=== PATIENT | male | born 1935 ===

== ENCOUNTER 2018-05-01 08:17 | Inpatient (IN) | payer MEDICAID ==
[2018-05-01] MEDS ORDERED: Albuterol-Ipratrop 3 mg / 0.5 (3 ml) UD INH STA ×2 (09:16→10:35)
--- NOTE | 2018-05-01 09:26 | ED PDOC ---
HPI: SOB/CHF/COPD Time Seen by Provider: 05/01/18 09:05 Chief Complaint (Nursing): Shortness Of Breath Chief Complaint (Provider): shortness of breath and cough History Per: Personal Care Worker (#[id number]) History/Exam Limitations: no limitations Onset/Duration Of Symptoms: Days (a few) Additional Complaint(s): King Simon, an 82 year old male with past medical history of lung cancer, presents to the emergency room with shortness of breath and cough with white/yellow dispute production ongoing for a few days. Patient states he is currently undergoing chemotherapy for lung cancer. He reports that he has bilateral lower leg swelling and pain for three months. Patient states he took his nebulizer with no relief. He denies any chest pain. No further medical complaints. Past Medical History Reviewed: Historical Data, Nursing Documentation, Vital Signs Vital Signs: Last Vital Signs Temp 97.9 F 05/01/18 16:20 Pulse 97 H 05/01/18 16:20 Resp 20 05/01/18 16:20 BP 119/76 05/01/18 16:20 Pulse Ox 96 05/01/18 16:20 - Medical History PMH: Asthma, COPD, Diabetes, HTN, Hypercholesterolemia, Malignancy (Lung), Chronic Kidney Disease Denies: HIV Other PMH: Lung cancer - Surgical History Surgical History: Appendectomy, Hernia Repair (Inguinal x 2) - Family History Family History: States: Unknown Family Hx - Home Medications Home Medications: Ambulatory Orders Medication Instructions Recorded Albuterol 0.083% [Albuterol 0.083% 2.5 mg IH Q6 PRN 05/01/18 Inhal Juani (2.5 mg/3 ml) UD] Albuterol HFA [Ventolin HFA 90 2 puff IH [id number] 05/01/18 mcg/actuation (8 g)] Allopurinol [Zyloprim] 100 mg PO DAILY 05/01/18 Atorvastatin [Lipitor] 10 mg PO HS 05/01/18 Calcium Carbonate/Vitamin D3 1 tab PO DAILY 05/01/18 [Calcium 600 + Vit D Tablet] Ergocalciferol (Vitamin D2) 5,000 unit PO QWK 05/01/18 [Ergocal] Furosemide [Lasix] 20 mg PO DAILY 05/01/18 Linaclotide [Linzess] 145 mcg PO DAILY 05/01/18 Magnesium Oxide [Magnesium] 400 mg PO BID 05/01/18 Metformin HCl [Glucophage] 1,000 mg PO DAILY 05/01/18 Metoprolol Succinate XL [Toprol XL] 50 mg PO DAILY 05/01/18 Montelukast [Singulair] 10 mg PO DAILY 05/01/18 Multivitamin,Ther and Minerals 1 tab PO DAILY 05/01/18 [Multivitamins with Minerals Hp] Prednisolone [Millipred] 5 mg PO DAILY 05/01/18 Sodium/Potas/Chlor/Magnes/Phos 10 meq PO DAILY 05/01/18 [Replace Sr Tablet] Spironolactone [Aldactone] 50 mg PO DAILY 05/01/18 - Allergies Allergies/Adverse Reactions: Allergies Allergy/AdvReac Type Severity Reaction Status Date / Time No Known Allergies Allergy Verified 05/01/18 08:34 Review of Systems ROS Statement: Except As Marked, All Systems Reviewed And Found Negative Cardiovascular: Negative for: Chest Pain Respiratory: Positive for: Cough (productive), Shortness of Breath Musculoskeletal: Positive for: Leg Pain (bilateral pain and swelling) Physical Exam - Reviewed Nursing Documentation Reviewed: Yes Vital Signs Reviewed: Yes - Physical Exam Appears: Positive for: Well, Non-toxic, No Acute Distress Head Exam: Positive for: ATRAUMATIC, NORMAL INSPECTION, NORMOCEPHALIC Skin: Positive for: Normal Color, Warm, DRY Eye Exam: Positive for: EOMI, Normal appearance, PERRL Cardiovascular/Chest: Positive for: Regular Rate, Rhythm Respiratory: Positive for: Wheezing (bilateral) Gastrointestinal/Abdominal: Positive for: Normal Exam, Soft Extremity: Positive for: Calf Tenderness (bilateral), Other (non pitting edema) Neurologic/Psych: Positive for: Alert, Oriented (x3) - Laboratory Results Result Diagrams: 05/01/18 09:40 05/01/18 15:10 - ECG O2 Sat by Pulse Oximetry: 96 (RA) Pulse Ox Interpretation: Normal - Radiology X-Ray: Interpreted by Ri X-Ray Interpretation: No Acute Disease Medical Decision Making Medical Decision Making: Time: 9:05 Initial Impression: dyspnea and bilateral LE edema Initial Plan: --EKG --CMP --ED urine dipstick --CBC w/ differential --PTT --Prothromin time --Cxr portable --Albuterol 3 ml INH --Solu-medrl 125 mg IVP --Blood culture stat --Peak flow pre/post --urinalysis DOPPLER ULTRASOUND: Preliminary reports (-) BLE DVT. Scribe Attestation: Documented by Flakita Ruiz, acting as a scribe for Latisha Babcock MD. Provider Scribe Attestation: All medical record entries made by the Scribe were at my direction and personally dictated by me. I have reviewed the chart and agree that the record accurately reflects my personal performance of the history, physical exam, medical decision making, and the department course for this patient. I have also personally directed, reviewed, and agree with the discharge instructions and disposition. Disposition - Clinical Impression Clinical Impression: COPD exacerbation, Lung cancer - Patient ED Disposition Is Patient to be Admitted: Yes - Disposition Disposition Time: 11:59 Condition: STABLE - Pt Status Changed To: Hospital Disposition Of: Inpatient - Admit Certification Admit to Inpatient:: After my assessment, the patient will require hospitalization for at least two midnights. This is because of the severity of symptoms shown, intensity of services needed, and/or the medical risk in this patient being treated as an outpatient. - POA Present On Arrival: None
[2018-05-01] MEDS ORDERED: Albuterol-Ipratrop 3 mg / 0.5 (3 ml) UD ONE ×2 (09:29→10:57)
[2018-05-01 09:48] LABS: BASO # 0.1 K/uL (0.0-0.2); BASO % 1.1 % (0.0-2.0); EOS # 0.6 K/uL (0.0-0.7); EOS % 7.4 % (0.0-4.0); LYMPH # 2.4 K/uL (1.0-4.3); LYMPH % 31.9 % (20.0-40.0); MEAN CORPUSCULAR HEMOGLOBIN 29.3 pg (27.0-31.0); MEAN CORPUSCULAR HGB CONC 32.6 g/dL (33.0-37.0); MEAN PLATELET VOLUME 9.4 fl (7.2-11.7); MONO # 0.7 K/uL (0.0-0.8); MONO % 9.9 % (0.0-10.0); NEUT # 3.7 K/uL (1.8-7.0); NEUT % 49.7 % (50.0-75.0); NRBC % 0.1 % (0.0-0.0); RBC 4.44 Mil/uL (4.40-5.90); RED CELL DISTRIBUTION WIDTH 15.4 % (11.5-14.5); WHITE BLOOD COUNT 7.5 K/uL (4.8-10.8)
[2018-05-01 09:50] LABS: INR 1.1; PROTHROMBIN TIME 12.3 Seconds (9.8-13.1)
[2018-05-01 09:53] LABS: PARTIAL THROMBOPLASTIN TIME 35.4 Seconds (25.6-37.1)
[2018-05-01 09:58] LABS: ALB/GLOB RATIO 1.1 (1.0-2.1); CALCIUM 9.8 mg/dL (8.4-10.2)
[2018-05-01 11:10] LABS: SQUAMOUS EPITHIAL < 1 /hpf (0-5); URINE BILIRUBIN NEGATIVE (NEGATIVE); URINE BLOOD NEGATIVE (NEGATIVE); URINE CLARITY SLIGHTY-CLOUDY (Clear); URINE COLOR YELLOW (YELLOW); URINE GLUCOSE (UA) NEG (Normal); URINE LEUKOCYTE ESTERASE NEG Leu/uL (Negative); URINE PROTEIN NEGATIVE (NEGATIVE); URINE UROBILINOGEN 0.2-1.0 mg/dL (0.2-1.0)
[2018-05-01] MEDS ORDERED: Sodium Chloride 3% for Inhalation 4 ML VIAL.NEB IH PRN (12:04)
[2018-05-01] MEDS ORDERED: Albuterol-Ipratrop 3 mg / 0.5 (3 ml) UD NEB SCH (13:00)
[2018-05-01 15:39] LABS: ALB/GLOB RATIO 0.9 (1.0-2.1); ALBUMIN 3.2 g/dL (3.5-5.0); CALCIUM 8.1 mg/dL (8.4-10.2)
--- NOTE | 2018-05-01 16:22 | CT ---
Date of service: 05/01/2018 PROCEDURE: CT NECK WITHOUT CONTRAST HISTORY: dyspnea, h/o lung ca COMPARISON: None available. TECHNIQUE: CT of the neck without intravenous contrast. Coronal and sagittal reformats generated. Radiation dose: DLP mGy-cm This CT exam was performed using one or more of the following dose reduction techniques: Automated exposure control, adjustment of the mA and/or kV according to patient size, and/or use of iterative reconstruction technique. FINDINGS: NASOPHARYNX: Unremarkable. SUPRAHYOID NECK: Unremarkable oropharynx, oral cavity, parapharyngeal space and retropharyngeal space. INFRAHYOID NECK: Unremarkable larynx, hypopharynx, and supraglottic space. Vocal cords intact. MASS: None. GLANDS: Parotid and submandibular glands unremarkable. Normal size thyroid gland, without nodule. LYMPH NODES: Normal. No lymphadenopathy. CERVICAL SPINE: No fracture or focal lesion. OTHER FINDINGS: None. IMPRESSION: Unremarkable non-contrast enhanced CT of the neck. Date of service: 05/01/2018 PROCEDURE: CT Chest without contrast HISTORY: dyspnea, h/o lung ca COMPARISON: None available. TECHNIQUE: Contiguous axial images were obtained through the chest without intravenous contrast enhancement. Sagittal and coronal reconstructions were performed. Radiation dose (DLP): mGy-cm. This CT exam was performed using one or more of the following dose reduction techniques: Automated exposure control, adjustment of the mA and/or kV according to patient size, and/or use of iterative reconstruction technique. FINDINGS: LUNGS: Stable fibronodular changes in the right upper lobe. Emphysema. Visualized airway clear. MEDIASTINUM: Unremarkable thoracic aorta. No aneurysm. Normal sized heart. Main pulmonary artery unremarkable. No vascular congestion. No lymphadenopathy. PLEURA: No pleural fluid. No pneumothorax. BONES: No fracture. No destructive lesion. UPPER ABDOMEN: Grossly unremarkable. OTHER FINDINGS: None. IMPRESSION: Stable fibronodular changes in the right upper lobe. Emphysema.
[2018-05-01 16:39] VITALS: BMI 26.4
[2018-05-01] MEDS: Albuterol-Ipratrop 3 mg / 0.5 (3 ml) UD NEB SCH ×2 (17:28→19:09)
--- NOTE | 2018-05-01 17:55 | RAD ---
Date of service: 05/01/2018 HISTORY: SOB COMPARISON: No prior. FINDINGS: LUNGS: No active pulmonary disease. PLEURA: No significant pleural effusion identified, no pneumothorax apparent. CARDIOVASCULAR: Normal. OSSEOUS STRUCTURES: No significant abnormalities. VISUALIZED UPPER ABDOMEN: Normal. OTHER FINDINGS: None. IMPRESSION: No active disease.
[2018-05-01] MEDS ORDERED: Promethazine/Cod 6.25mg-10mg/5ml Syr UD PO PRN (19:59)
[2018-05-01] MEDS: MethylPREDNISolone 40 mg Vial IVP SCH (20:36)
[2018-05-01] MEDS ORDERED: methylPREDNISolone 40 MG in Sodium Chloride 0.9% 50 ML IVPB SCH (21:00)
[2018-05-01] MEDS ORDERED: Albuterol-Ipratrop 3 mg / 0.5 (3 ml) UD INH PRN (21:12)
--- NOTE | 2018-05-01 21:28 | CARD ---
APPROVED REPORT Date of service: 05/01/2018 <Conclusion> Normal sinus rhythm Normal ECG
[2018-05-02 06:05] LABS: BASO % 0.1 % (0.0-2.0); HEMOGLOBIN 12.7 g/dL (12.0-18.0); LYMPH # 1.7 K/uL (1.0-4.3); LYMPH % 19.8 % (20.0-40.0); MEAN CELL VOLUME 88.4 fl (80.0-94.0); MEAN CORPUSCULAR HEMOGLOBIN 29.6 pg (27.0-31.0); MEAN CORPUSCULAR HGB CONC 33.4 g/dL (33.0-37.0); MEAN PLATELET VOLUME 9.4 fl (7.2-11.7); MONO # 0.2 K/uL (0.0-0.8); MONO % 2.6 % (0.0-10.0); NEUT # 6.6 K/uL (1.8-7.0); NEUT % 77.5 % (50.0-75.0); RBC 4.28 Mil/uL (4.40-5.90); RED CELL DISTRIBUTION WIDTH 15.3 % (11.5-14.5); WHITE BLOOD COUNT 8.6 K/uL (4.8-10.8)
[2018-05-02 06:14] LABS: ALB/GLOB RATIO 1.1 (1.0-2.1); ALBUMIN 3.8 g/dL (3.5-5.0); CALCIUM 9.7 mg/dL (8.4-10.2)
[2018-05-02] MEDS: Albuterol-Ipratrop 3 mg / 0.5 (3 ml) UD NEB SCH ×4 (07:32→18:59)
[2018-05-02] MEDS: Moxifloxacin IV 400mg/250ml NS 400 MG/250 ML BAG IVPB SCH (08:57)
[2018-05-02] MEDS: MethylPREDNISolone 40 mg Vial IVP SCH ×2 (08:57→21:17)
--- NOTE | 2018-05-02 11:28 | CP.PCM.HP ---
History of Present Illness - History of Present Illness History of Present Illness: 80 y/o M ex-smoker with PMHx HTN, DM2, COPD, Lung Cancer (chemo)?? admitted for COPD exacerbation. Patient states that increasing dyspnea with increased cough and sputum production in the last few days. Patient was given duonebs and steroids in ED, with minimal relief. Patient states follows with oncologist but hasnt seen in a while. Patient also states whistling noise from throat at times with trouble swallowing at times. No other complaints at this time. Patient denies fevers, chills, nausea, vomiting, chest pain. Patient states this AM feels better than yesterday, however still with symptoms. PSHx: Bilateral Inguinal hernia repair SMHx: exsmoker 3ppd, quit 30 years ago. Denies EtOH, drugs. Lives with daughter Present on Admission - Present on Admission Any Indicators Present on Admission: No Review of Systems - Review of Systems All systems: reviewed and no additional remarkable complaints except (mentioned in HPI) Past Patient History - Infectious Disease Hx of Infectious Diseases: None - Past Medical History & Family History Past Medical History?: Yes - Past Social History Smoking Status: Former Smoker - CARDIAC Hx Hypercholesterolemia: Yes Hx Hypertension: Yes - PULMONARY Hx Asthma: Yes Hx Chronic Obstructive Pulmonary Disease (COPD): Yes - NEUROLOGICAL Hx Neurological Disorder: Yes Other/Comment: Forgetful - HEENT Hx HEENT Problems: No - RENAL Hx Chronic Kidney Disease: Yes - ENDOCRINE/METABOLIC Hx Endocrine Disorders: Yes Hx Diabetes Mellitus Type 2: Yes - HEMATOLOGICAL/ONCOLOGICAL Hx Human Immunodeficiency Virus (HIV): No - INTEGUMENTARY Hx Dermatological Problems: No - MUSCULOSKELETAL/RHEUMATOLOGICAL Hx Musculoskeletal Disorders: Yes Hx Falls: Yes (3 Weeks ago) Hx Gout: Yes - GASTROINTESTINAL Hx Gastrointestinal Disorders: No - GENITOURINARY/GYNECOLOGICAL Hx Genitourinary Disorders: No - PSYCHIATRIC Hx Psychophysiologic Disorder: No Hx Substance Use: No - SURGICAL HISTORY Hx Appendectomy: Yes - ANESTHESIA Hx Anesthesia: Yes Hx Anesthesia Reactions: No Hx Malignant Hyperthermia: No Meds Allergies/Adverse Reactions: Allergies Allergy/AdvReac Type Severity Reaction Status Date / Time No Known Allergies Allergy Verified 05/01/18 08:34 Physical Exam - Constitutional Appears: Non-toxic, No Acute Distress - Head Exam Head Exam: NORMAL INSPECTION - Eye Exam Eye Exam: Normal appearance - Neck Exam Neck exam: Positive for: Normal Inspection. Negative for: Lymphadenopathy, Tenderness - Respiratory Exam Respiratory Exam: Rhonchi, NORMAL BREATHING PATTERN. absent: Respiratory Distress - Cardiovascular Exam Cardiovascular Exam: REGULAR RHYTHM, +S1, +S2 - GI/Abdominal Exam GI & Abdominal Exam: Normal Bowel Sounds, Soft. absent: Tenderness - Extremities Exam Extremities exam: Positive for: normal inspection - Back Exam Back exam: NORMAL INSPECTION - Neurological Exam Neurological exam: Alert, Oriented x3 - Psychiatric Exam Psychiatric exam: Normal Affect, Normal Mood - Skin Skin Exam: Normal Color, Warm Results - Vital Signs Recent Vital Signs: Last Vital Signs Temp 97.5 F L 05/02/18 07:44 Pulse 101 H 05/02/18 09:00 Resp 22 05/02/18 07:44 BP 97/63 L 05/02/18 07:44 Pulse Ox 94 L 05/02/18 07:44 - Labs Result Diagrams: 05/02/18 04:20 05/02/18 04:20 Labs: Laboratory Results - last 24 hr 05/01/18 05/01/18 05/02/18 15:10 15:10 04:20 WBC 8.6 RBC 4.28 L Hgb 12.7 Hct 37.9 MCV 88.4 MCH 29.6 MCHC 33.4 RDW 15.3 H Plt Count 183 MPV 9.4 Neut % (Auto) 77.5 H Lymph % (Auto) 19.8 L Dillon % (Auto) 2.6 Eos % (Auto) 0.0 Baso % (Auto) 0.1 Neut # (Auto) 6.6 Lymph # (Auto) 1.7 Dillon # (Auto) 0.2 Eos # (Auto) 0.0 Baso # (Auto) 0.0 Sodium 136 Potassium 4.5 Chloride 105 Carbon Dioxide 26 Anion Gap 10 BUN 18 Creatinine 1.4 Est GFR ( Amer) 58 Est GFR (Non-Af Amer) 48 Random Glucose 104 Calcium 8.1 L Total Bilirubin 0.7 AST 46 ALT 19 L D Alkaline Phosphatase 43 NT-Pro-B Natriuret Pep 115 Total Protein 6.8 Albumin 3.2 L Globulin 3.6 Albumin/Globulin Ratio 0.9 L Influenza Typ A,B (EIA) Negative for flu a/b 05/02/18 04:20 WBC RBC Hgb Hct MCV MCH MCHC RDW Plt Count MPV Neut % (Auto) Lymph % (Auto) Dillon % (Auto) Eos % (Auto) Baso % (Auto) Neut # (Auto) Lymph # (Auto) Dillon # (Auto) Eos # (Auto) Baso # (Auto) Sodium 134 Potassium 5.0 Chloride 99 Carbon Dioxide 29 Anion Gap 11 BUN 28 H Creatinine 1.8 H Est GFR ( Amer) 44 Est GFR (Non-Af Amer) 36 Random Glucose 129 H Calcium 9.7 Total Bilirubin 0.4 AST 31 ALT 18 L Alkaline Phosphatase 63 NT-Pro-B Natriuret Pep Total Protein 7.3 Albumin 3.8 Globulin 3.5 Albumin/Globulin Ratio 1.1 Influenza Typ A,B (EIA) Assessment & Plan - Assessment and Plan (Free Text) Assessment: 80 y/o M with PMH of HTN, NIDDM2, COPD, Lung Cancer?? admitted for acute COPD exacerbation. Acute COPD exacerbation -likely trigger 2/2 recent illness -No leukocytosis or fever -requiring 2L NC -Duonebs -cough suppressant -steroid 40mg q12 -moxifloxacin -pulmonology consulted, appreciate recommendations Lung CA, history of -ct of chest/neck unremarkable except for small fibronodular changes -no neck pathology DVT Prophylaxis -SCDs
--- NOTE | 2018-05-02 11:29 | US ---
Date of service: 05/01/2018 PROCEDURE: Bilateral lower extremity venous duplex Doppler. HISTORY: BLE swelling COMPARISON: None available. TECHNIQUE: Bilateral common femoral, superficial femoral, popliteal and posterior tibial veins were evaluated. Flow was assessed with color Doppler, compressibility, assessment of phasic flow and augmentation response. FINDINGS: COMMON FEMORAL VEIN: Right CFV: Unremarkable. Left CFV: Unremarkable. SUPERFICIAL FEMORAL VEIN: Right SFV: Unremarkable. Left SFV: Unremarkable. POPLITEAL VEIN: Right Popliteal: Unremarkable. Left Popliteal: Unremarkable. POSTERIOR TIBIAL VEIN: Right PTV: Unremarkable. Left PTV: Unremarkable. OTHER FINDINGS: None. IMPRESSION: No evidence of deep venous thrombosis.
--- NOTE | 2018-05-02 16:31 | CARD ---
APPROVED REPORT Date of service: 05/02/2018 EXAM: Two-dimensional and M-mode echocardiogram with Doppler and color Doppler. Other Information Quality : AverageRhythm : NSR INDICATION Dyspnea Pulmonary Hypertention 2D DIMENSIONS IVSd0.93 (0.7-1.1cm)LVDd4.74 (3.9-5.9cm) LVOT Diameter2.17 (1.8-2.4cm)PWd0.64 (0.7-1.1cm) IVSs0.97 (0.8-1.2cm)LVDs3.19 (2.5-4.0cm) FS (%) 32.8 %PWs0.91 (0.8-1.2cm) M-Mode DIMENSIONS Left Atrium (MM)2.06 (2.5-4.0cm)IVSd0.73 (0.7-1.1cm) Aortic Root3.81 (2.2-3.7cm)Aortic Cusp Exc.2.06 (1.5-2.0cm) PWd0.91 (0.7-1.1cm)IVSs1.12 cm FS (%) 28 %PWs1.08 cm Aortic Valve AoV Peak Ysriwrgt033.0cm/sAoV VTI15.6cmAO Peak GR.5mmHg LVOT Peak Qylouscc57.6cm/sLVOT VTI12.36cmAO Mean GR.3mmHg Mitral Valve E/A ratio0.0 TDI E/Lateral E'0.0E/Medial E'0.0 LEFT VENTRICLE The left ventricle is normal size. There is normal left ventricular wall thickness. The left ventricular systolic function is normal. The estimated ejection fraction is 55-60% No regional wall motion abnormalities noted.. Transmitral Doppler flow pattern is Grade I-abnormal relaxation pattern. No left ventricle thrombus noted on this study. There is no ventricular septal defect visualized. There is no mass noted in the left ventricle. RIGHT VENTRICLE The right ventricle is normal size. There is normal right ventricular wall thickness. The right ventricular systolic function is normal. ATRIA The left atrium size is normal. The right atrium size is normal. The interatrial septum is intact with no evidence for an atrial septal defect. AORTIC VALVE The aortic valve is normal in structure. Trivial aortic regurgitation is present. There is no aortic valvular stenosis. MITRAL VALVE The mitral valve is normal in structure. Mitral annular calcification is mild. There is no mitral valve stenosis. There is no mitral valve regurgitation noted. TRICUSPID VALVE The tricuspid valve is normal in structure. There is no tricuspid valve regurgitation noted. PULMONIC VALVE The pulmonary valve is normal in structure. There is no pulmonic valvular regurgitation. GREAT VESSELS The aortic root is mildly dilated The ascending aorta is normal in size. The pulmonary artery is normal. The IVC is normal in size and collapses >50% with inspiration. PERICARDIAL EFFUSION There is no pericardial effusion. <Conclusion> Dilated aortic root Normal LV sysotlic function with doppler hemodynamics consistent with abnormal relaxation The estimated ejection fraction is 55-60%
--- NOTE | 2018-05-02 21:58 | CP.PCM.CON ---
History of Present Illness - History of Present Illness History of Present Illness: Called to consult on a patient with a Hx of COPD 2/2 tobacco abuse, who comes in with sx and signs of an exacerbation. Pos SOB, Neg hem, pos Phlegm, ? fever at tome, pos audible wheezing. NKDA Tobacco user, quit 10 years ago. Hx of 100+ pack years. ETOH: former. Fam Hx: Non Cont VS Stable Lungs: Distant BS, with some epx focal wheezing and rhonchi. No C,C,E. Neuro: GNF Labs: see reports. a/p Acute Resp Insuff 2/2 COPD ex. possibly acute tracheobronchitis. Cont Supp o2, maintain O2 sat > 90% Avoid Hyperoxia. Cont Nebulized MAXIM. Chest PT. Iv Steroids (would change to po in view of improvement) and ABX. Monitor WBC#, temp curve, and pancultures. PFT's prior to d/c. PUD and DVT Px. Signing out of case. Please call back prn Dr. Davin Pacheco [phone] Past Patient History - Infectious Disease Hx of Infectious Diseases: None - Past Medical History & Family History Past Medical History?: Yes - Past Social History Smoking Status: Former Smoker - CARDIAC Hx Hypercholesterolemia: Yes Hx Hypertension: Yes - PULMONARY Hx Asthma: Yes Hx Chronic Obstructive Pulmonary Disease (COPD): Yes - NEUROLOGICAL Hx Neurological Disorder: Yes Other/Comment: Forgetful - HEENT Hx HEENT Problems: No - RENAL Hx Chronic Kidney Disease: Yes - ENDOCRINE/METABOLIC Hx Endocrine Disorders: Yes Hx Diabetes Mellitus Type 2: Yes - HEMATOLOGICAL/ONCOLOGICAL Hx Human Immunodeficiency Virus (HIV): No - INTEGUMENTARY Hx Dermatological Problems: No - MUSCULOSKELETAL/RHEUMATOLOGICAL Hx Musculoskeletal Disorders: Yes Hx Falls: Yes (3 Weeks ago) Hx Gout: Yes - GASTROINTESTINAL Hx Gastrointestinal Disorders: No - GENITOURINARY/GYNECOLOGICAL Hx Genitourinary Disorders: No - PSYCHIATRIC Hx Psychophysiologic Disorder: No Hx Substance Use: No - SURGICAL HISTORY Hx Appendectomy: Yes - ANESTHESIA Hx Anesthesia: Yes Hx Anesthesia Reactions: No Hx Malignant Hyperthermia: No Meds Allergies/Adverse Reactions: Allergies Allergy/AdvReac Type Severity Reaction Status Date / Time No Known Allergies Allergy Verified 05/01/18 08:34 - Medications Medications: Current Medications Albuterol/Ipratropium (Duoneb 3 Mg/0.5 Mg (3 Ml) Ud) 3 ml NEB 0800,1200,1600, 2000 ISSAC Last Admin: 05/02/18 18:59 Dose: 3 ml Albuterol/Ipratropium (Duoneb 3 Mg/0.5 Mg (3 Ml) Ud) 3 ml INH RQ6 PRN PRN Reason: Shortness of Breath Moxifloxacin HCl (Avelox Iv 400mg/250ml Ns) 400 mg in 250 mls @ 250 mls/hr IVPB DAILY ISSAC PRN Reason: Protocol Last Admin: 05/02/18 08:57 Dose: 250 mls/hr Methylprednisolone (Solu-Medrol) 40 mg IVP Q12 ISSAC Last Admin: 05/02/18 21:17 Dose: 40 mg Promethazine HCl/Codeine (Phenergan/Codeine Oral Syrup) 5 ml PO Q4 PRN PRN Reason: Cough Last Admin: 05/01/18 20:21 Dose: 5 ml Results - Vital Signs Recent Vital Signs: Last Vital Signs Temp 97.8 F 05/02/18 20:12 Pulse 117 H 05/02/18 20:12 Resp 20 05/02/18 20:12 BP 102/67 05/02/18 20:12 Pulse Ox 95 05/02/18 20:12 - Labs Result Diagrams: 05/02/18 04:20 05/02/18 04:20 Labs: Laboratory Results - last 24 hr 05/01/18 05/02/18 05/02/18 15:10 04:20 04:20 WBC 8.6 RBC 4.28 L Hgb 12.7 Hct 37.9 MCV 88.4 MCH 29.6 MCHC 33.4 RDW 15.3 H Plt Count 183 MPV 9.4 Neut % (Auto) 77.5 H Lymph % (Auto) 19.8 L Bradley % (Auto) 2.6 Eos % (Auto) 0.0 Baso % (Auto) 0.1 Neut # (Auto) 6.6 Lymph # (Auto) 1.7 Bradley # (Auto) 0.2 Eos # (Auto) 0.0 Baso # (Auto) 0.0 Sodium 134 Potassium 5.0 Chloride 99 Carbon Dioxide 29 Anion Gap 11 BUN 28 H Creatinine 1.8 H Est GFR ( Amer) 44 Est GFR (Non-Af Amer) 36 Random Glucose 129 H Calcium 9.7 Total Bilirubin 0.4 AST 31 ALT 18 L Alkaline Phosphatase 63 Total Protein 7.3 Albumin 3.8 Globulin 3.5 Albumin/Globulin Ratio 1.1 Procalcitonin < 0.05 L
[2018-05-03 06:56] LABS: HEMOGLOBIN 12.2 g/dL (12.0-18.0); MEAN CELL VOLUME 87.8 fl (80.0-94.0); MEAN CORPUSCULAR HEMOGLOBIN 29.4 pg (27.0-31.0); MEAN CORPUSCULAR HGB CONC 33.5 g/dL (33.0-37.0); RBC 4.14 Mil/uL (4.40-5.90); RED CELL DISTRIBUTION WIDTH 15.5 % (11.5-14.5); WHITE BLOOD COUNT 14.1 K/uL (4.8-10.8)
[2018-05-03 07:15] LABS: ALBUMIN 3.6 g/dL (3.5-5.0); CALCIUM 9.4 mg/dL (8.4-10.2)
[2018-05-03] MEDS: Albuterol-Ipratrop 3 mg / 0.5 (3 ml) UD NEB SCH (08:00)
[2018-05-03] MEDS: Moxifloxacin IV 400mg/250ml NS 400 MG/250 ML BAG IVPB SCH (09:30)
[2018-05-03] MEDS: MethylPREDNISolone 40 mg Vial IVP SCH ×2 (09:30→22:00)
[2018-05-03] MEDS ORDERED: Albuterol-Ipratrop 3 mg / 0.5 (3 ml) UD INH PRN (14:37)
--- NOTE | 2018-05-03 15:39 | CP.PCM.PN ---
Addendum entered and electronically signed by Jud Schneider MD 05/03/18 18:01: MARISSA noted, Crea increased to 1.7 from 1.4. Hypovolemic (low BP with reflex tachy), likely prerenal, will start maintenance fluids and monitor I/O's. Original Note: Subjective - Date & Time of Evaluation Date of Evaluation: 05/03/18 Time of Evaluation: 08:00 - Subjective Subjective: No overnight events. Pt seen and examined this morning. States his sob and cough as improved. Objective - Vital Signs/Intake and Output Vital Signs (last 24 hours): Temp Pulse Resp BP Pulse Ox 97.9 F 101 H 20 109/66 92 L 05/03/18 09:00 05/03/18 09:00 05/03/18 09:00 05/03/18 09:00 05/03/18 09:00 - Medications Medications: Current Medications Albuterol/Ipratropium (Duoneb 3 Mg/0.5 Mg (3 Ml) Ud) 3 ml INH RQ4 PRN PRN Reason: Shortness of Breath Moxifloxacin HCl (Avelox Iv 400mg/250ml Ns) 400 mg in 250 mls @ 250 mls/hr IVPB DAILY ISSAC; Protocol Last Admin: 05/02/18 08:57 Dose: 250 mls/hr Methylprednisolone (Solu-Medrol) 40 mg IVP Q12 ISSAC Last Admin: 05/02/18 21:17 Dose: 40 mg Promethazine HCl/Codeine (Phenergan/Codeine Oral Syrup) 5 ml PO Q4 PRN PRN Reason: Cough Last Admin: 05/01/18 20:21 Dose: 5 ml Tiotropium [place] (Spiriva) 18 mcg INH DAILY ISSAC - Labs Labs: 05/03/18 04:20 05/03/18 04:20 PT 12.3 Seconds (9.8-13.1) 05/01/18 09:40 INR 1.1 05/01/18 09:40 - Constitutional Appears: Well, No Acute Distress - Head Exam Head Exam: NORMAL INSPECTION - Eye Exam Eye Exam: Normal appearance - ENT Exam ENT Exam: Mucous Membranes Moist - Neck Exam Neck Exam: Full ROM - Respiratory Exam Respiratory Exam: Rhonchi, Wheezes (Scattered BL). absent: Respiratory Distress - Cardiovascular Exam Cardiovascular Exam: REGULAR RHYTHM, +S1, +S2. absent: Murmur - GI/Abdominal Exam GI & Abdominal Exam: Soft, Normal Bowel Sounds. absent: Tenderness - Extremities Exam Extremities Exam: absent: Pedal Edema - Neurological Exam Neurological Exam: Alert, Oriented x3 - Psychiatric Exam Psychiatric exam: Normal Affect - Skin Skin Exam: Normal Color Assessment and Plan (1) COPD exacerbation Status: Acute - Assessment and Plan (Free Text) Assessment: 80 y/o M with PMH of HTN, NIDDM2, COPD, Lung Cancer (w/r resectionadmitted for acute COPD exacerbation. Acute COPD exacerbation -Improved, c/w current management as ordered -6 min walk test, PFT's ordered -pulmonology consulted, appreciate recommendations Discussed case w/ Dr. José Miguel Schneider, PGY2
[2018-05-03] MEDS: Sodium Chloride 0.9% 1,000 ML IV SCH (21:00)
[2018-05-04] MEDS: Sodium Chloride 0.9% 1,000 ML IV SCH ×2 (02:00→09:04)
[2018-05-04] MEDS ORDERED: Sodium Chloride 0.9% 500 ML IV ONE (04:48)
[2018-05-04 08:23] VITALS: TEMP 97.4
[2018-05-04] MEDS: MethylPREDNISolone 40 mg Vial IVP SCH (08:57)
[2018-05-04] MEDS: Moxifloxacin IV 400mg/250ml NS 400 MG/250 ML BAG IVPB SCH (08:58)
[2018-05-04] MEDS ORDERED: Tiotropium 18 mcg Cap For Inhalation INH SCH (09:00)
[2018-05-04 14:09] VITALS: BP 108/74; PULSE 96; RESP 17; O2SAT 100
--- NOTE | 2018-05-04 15:23 | CP.PCM.DIS ---
Provider - Provider Date of Admission: 05/01/18 11:59 Attending physician: Guillermo Valdez MD Time Spent in preparation of Discharge (in minutes): 35 Diagnosis - Discharge Diagnosis (1) COPD exacerbation Status: Resolved Hospital Course - Lab Results Lab Results: Micro Results 05/02/18 17:30 Sputum Gram Stain - Final 05/02/18 17:30 Sputum Sputum Culture - Final NORMAL ORAL NARENDRA 05/01/18 09:15 Blood-Venous Blood Culture - Preliminary NO GROWTH AFTER 3 DAYS 05/01/18 08:45 Blood-Venous Blood Culture - Preliminary NO GROWTH AFTER 3 DAYS Most Recent Lab Values WBC 14.1 K/uL (4.8-10.8) H D 05/03/18 04:20 RBC 4.14 Mil/uL (4.40-5.90) L 05/03/18 04:20 Hgb 12.2 g/dL (12.0-18.0) 05/03/18 04:20 Hct 36.3 % (35.0-51.0) 05/03/18 04:20 MCV 87.8 fl (80.0-94.0) 05/03/18 04:20 MCH 29.4 pg (27.0-31.0) 05/03/18 04:20 MCHC 33.5 g/dL (33.0-37.0) 05/03/18 04:20 RDW 15.5 % (11.5-14.5) H 05/03/18 04:20 Plt Count 196 K/uL (130-400) 05/03/18 04:20 MPV 9.4 fl (7.2-11.7) 05/02/18 04:20 Neut % (Auto) 77.5 % (50.0-75.0) H 05/02/18 04:20 Lymph % (Auto) 19.8 % (20.0-40.0) L 05/02/18 04:20 [place] % (Auto) 2.6 % (0.0-10.0) 05/02/18 04:20 Eos % (Auto) 0.0 % (0.0-4.0) 05/02/18 04:20 Baso % (Auto) 0.1 % (0.0-2.0) 05/02/18 04:20 Neut # (Auto) 6.6 K/uL (1.8-7.0) 05/02/18 04:20 Lymph # (Auto) 1.7 K/uL (1.0-4.3) 05/02/18 04:20 [place] # (Auto) 0.2 K/uL (0.0-0.8) 05/02/18 04:20 Eos # (Auto) 0.0 K/uL (0.0-0.7) 05/02/18 04:20 Baso # (Auto) 0.0 K/uL (0.0-0.2) 05/02/18 04:20 PT 12.3 Seconds (9.8-13.1) 05/01/18 09:40 INR 1.1 05/01/18 09:40 Sodium 135 mmol/l (132-148) 05/03/18 04:20 Potassium 4.5 MMOL/L (3.6-5.0) 05/03/18 04:20 Chloride 99 mmol/L (98-107) 05/03/18 04:20 Carbon Dioxide 25 mmol/L (22-30) 05/03/18 04:20 Anion Gap 16 (10-20) 05/03/18 04:20 BUN 31 mg/dl (9-20) H 05/03/18 04:20 Creatinine 1.7 mg/dl (0.8-1.5) H 05/03/18 04:20 Est GFR ( Amer) 47 05/03/18 04:20 Est GFR (Non-Af Amer) 39 05/03/18 04:20 Random Glucose 162 mg/dL (75-110) H 05/03/18 04:20 Calcium 9.4 mg/dL (8.4-10.2) 05/03/18 04:20 Total Bilirubin 0.2 mg/dl (0.2-1.3) 05/03/18 04:20 AST 29 U/L (17-59) 05/03/18 04:20 ALT 25 U/L (21-72) 05/03/18 04:20 Alkaline Phosphatase 60 U/L (38-126) 05/03/18 04:20 NT-Pro-B Natriuret Pep 115 pg/ml (0-900) 05/01/18 15:10 Total Protein 7.1 G/DL (6.3-8.2) 05/03/18 04:20 Albumin 3.6 g/dL (3.5-5.0) 05/03/18 04:20 Globulin 3.6 gm/dL (2.2-3.9) 05/03/18 04:20 Albumin/Globulin Ratio 1.0 (1.0-2.1) 05/03/18 04:20 Procalcitonin < 0.05 NG/ML (0.19-0.49) L 05/01/18 15:10 Urine Color Yellow (YELLOW) 05/01/18 11:03 Urine Clarity Slighty-cloudy (Clear) 05/01/18 11:03 Urine pH 5.0 (5.0-8.0) 05/01/18 11:03 Ur Specific [place] 1.018 (1.003-1.030) 05/01/18 11:03 Urine Protein Negative mg/dL (NEGATIVE) 05/01/18 11:03 Urine Glucose (UA) Neg mg/dL (Normal) 05/01/18 11:03 Urine Ketones Negative mg/dL (NEGATIVE) 05/01/18 11:03 Urine Blood Negative (NEGATIVE) 05/01/18 11:03 Urine Nitrate Negative (NEGATIVE) 05/01/18 11:03 Urine Bilirubin Negative (NEGATIVE) 05/01/18 11:03 Urine Urobilinogen 0.2-1.0 mg/dL (0.2-1.0) 05/01/18 11:03 Ur Leukocyte Esterase Neg Efren/uL (Negative) 05/01/18 11:03 Urine RBC (Auto) 2 /hpf (0-3) 05/01/18 11:03 Urine Microscopic WBC 1 /hpf (0-5) 05/01/18 11:03 Ur Squamous Epith Cells < 1 /hpf (0-5) 05/01/18 11:03 Influenza Typ A,B (EIA) Negative for flu a/b (NEGATIVE) 05/01/18 15:10 - Hospital Course Hospital Course: 80 y/o M ex-smoker with PMHx HTN, DM2, COPD, and questionnable Lung Cancer (as per family), admitted for COPD exacerbation. Pt was treated with bronchodilators, antibiotics, and steroids until respiratory status improved to baseline. 6 minute walk test was completed which should good exercise tolerance and no indication for home O2. Pt was evaluated by furniture decals inspector who recommended PFT's outpatient. Stable for discharge on po antibiotics to complete 5 day course and steroid taper. Discussed Case with Dr. José Miguel Schneider, PGY2 Discharge Exam - Head Exam Head Exam: NORMAL INSPECTION - Eye Exam Eye Exam: Normal appearance - ENT Exam ENT Exam: Mucous Membranes Moist - Respiratory Exam Respiratory Exam: Clear to PA & Lateral. absent: Rales, Wheezes - Cardiovascular Exam Cardiovascular Exam: REGULAR RHYTHM - GI/Abdominal Exam GI & Abdominal Exam: Normal Bowel Sounds - Extremities Exam Extremities exam: normal inspection - Neurological Exam Neurological exam: Alert, Oriented x3 - Psychiatric Exam Psychiatric exam: Normal Affect - Skin Skin Exam: Normal Color Discharge Plan - Discharge Medications Prescriptions: Moxifloxacin [Avelox] 400 mg PO DAILY 3 Days #3 tab predniSONE [Prednisone] 10 mg PO BID #30 Tiotropium [Spiriva] 18 mcg INH DAILY #30 cap - Follow Up Plan Condition: STABLE Disposition: HOME/ ROUTINE Instructions: Exacerbation of COPD (DC) Additional Instructions: follow up with in 1 week Referrals: Magen Fenton MD [Staff Provider] -
== END 2018-05-04 15:40 | disposition home or self-care (01) | DRG 541 ==
LOC: H.ER 08:17 → H.ERHOLD 11:59 → H.TEL 15:45
PROVIDERS: ADMIT Family Medicine; ATTEND Family Medicine
DX: J44.1 Chronic obstructive pulmonary disease with (acute) exacerbation (principal); N17.9 Acute kidney failure, unspecified; C34.90 Malignant neoplasm of unspecified part of unspecified bronchus or lung; E86.1 Hypovolemia; R06.89 Other abnormalities of breathing; E78.00 Pure hypercholesterolemia, unspecified; Z87.891 Personal history of nicotine dependence; M10.9 Gout, unspecified; E11.9 Type 2 diabetes mellitus without complications; I10 Essential (primary) hypertension

== ENCOUNTER 2018-12-13 15:45 | Inpatient (IN) | payer MEDICAID ==
[2018-12-13 15:45] VITALS: BMI 26.4
[2018-12-13] MEDS ORDERED: Albuterol-Ipratrop 3 mg / 0.5 (3 ml) UD ONE (16:19)
[2018-12-13 16:41] LABS: BASO # 0.1 K/uL (0.0-0.2); BASO % 1.1 % (0.0-2.0); EOS # 0.5 K/uL (0.0-0.7); EOS % 6.8 % (0.0-4.0); HEMOGLOBIN 12.8 g/dL (12.0-18.0); LYMPH # 2.5 K/uL (1.0-4.3); LYMPH % 31.7 % (20.0-40.0); MEAN CELL VOLUME 90.5 fl (80.0-94.0); MEAN CORPUSCULAR HGB CONC 33.1 g/dL (33.0-37.0); MEAN PLATELET VOLUME 8.8 fl (7.2-11.7); MONO # 0.9 K/uL (0.0-0.8); MONO % 11.4 % (0.0-10.0); NEUT # 3.8 K/uL (1.8-7.0); NRBC % 0.1 % (0.0-0.0); RBC 4.26 Mil/uL (4.40-5.90); RED CELL DISTRIBUTION WIDTH 16.4 % (11.5-14.5); WHITE BLOOD COUNT 7.7 K/uL (4.8-10.8)
[2018-12-13 16:47] LABS: INR 1.1; PROTHROMBIN TIME 12.7 Seconds (9.8-13.1)
[2018-12-13 16:49] LABS: PARTIAL THROMBOPLASTIN TIME 35.8 Seconds (25.6-37.1)
[2018-12-13 16:50] LABS: VENOUS BLOOD GAS BASE EXCESS 1.9 mmol/L (0.0-2.0); VENOUS BLOOD GAS PCO2 50 mmHg (40-60); VENOUS BLOOD GAS PO2 28 mm/Hg (30-55); VENOUS BLOOD PH 7.36 (7.32-7.43)
[2018-12-13 16:54] LABS: ALB/GLOB RATIO 1.2 (1.0-2.1); ALBUMIN 4.1 g/dL (3.5-5.0); ALT/SGPT 20 U/L (21-72); AST/SGOT 33 U/L (17-59); BLOOD UREA NITROGEN 19 mg/dl (9-20); CALCIUM 9.4 mg/dL (8.4-10.2); GFR NON-AFRICAN AMERICAN 36
--- NOTE | 2018-12-13 17:01 | RAD ---
Date of service: 12/13/2018 HISTORY: possible admission COMPARISON: 05/01/2018. FINDINGS: LUNGS: The lungs are hyperinflated and there is peribronchial thickening with chronic changes in both lungs. No focal consolidation. PLEURA: No pleural effusions or pneumothorax. CARDIOVASCULAR: The heart is normal in size. There are aortic atherosclerotic calcifications present. OSSEOUS STRUCTURES: Within normal limits for the patient's age. VISUALIZED UPPER ABDOMEN: Normal. OTHER FINDINGS: None. IMPRESSION: No active pulmonary disease. COPD.
[2018-12-13 17:05] LABS: B-TYPE NATRIURETIC PEPTIDE 239 pg/ml (0-900)
[2018-12-13] MEDS ORDERED: Albuterol-Ipratrop 3 mg / 0.5 (3 ml) UD INH STA ×3 (18:00→23:13)
--- NOTE | 2018-12-13 18:00 | ED PDOC ---
HPI: SOB/CHF/COPD Time Seen by Provider: 12/13/18 16:17 Chief Complaint (Nursing): Shortness Of Breath Chief Complaint (Provider): Shortness of breath History Per: Patient History/Exam Limitations: no limitations Onset/Duration Of Symptoms: Days (2) Current Symptoms Are (Timing): Still Present Additional History Per: Patient Additional Complaint(s): 83yo male, comes to ER for evaluation of 2 days of shortness of breath. Patient also reports associated cough but denies any fever, nausea, vomiting. Patient has been compliant with all his medications. Past Medical History Vital Signs: Last Vital Signs Temp 97.7 F 12/13/18 15:52 Pulse 110 H 12/13/18 15:52 Resp 18 12/13/18 16:41 BP 116/73 12/13/18 15:52 Pulse Ox 94 L 12/13/18 15:52 Primary Care Provider: Magen Fenton - Medical History PMH: Asthma, COPD, Diabetes, HTN, Hypercholesterolemia, Malignancy (Lung), Chronic Kidney Disease Denies: HIV - Surgical History Surgical History: Appendectomy, Hernia Repair (Inguinal x 2) - Family History Family History: States: Unknown Family Hx - Home Medications Home Medications: Ambulatory Orders Medication Instructions Recorded Albuterol 0.083% [Albuterol 0.083% 2.5 mg IH Q6 PRN 05/01/18 Inhal Juani (2.5 mg/3 ml) UD] Albuterol HFA [Ventolin HFA 90 2 puff IH Q6 PRN 05/01/18 mcg/actuation (8 g)] Atorvastatin [Lipitor] 10 mg PO HS 05/01/18 Calcium Carbonate/Vitamin D3 1 tab PO DAILY 05/01/18 [Calcium 600 + Vit D Tablet] Linaclotide [Linzess] 145 mcg PO DAILY 05/01/18 Metformin HCl [Glucophage] 1,000 mg PO BID 05/01/18 Metoprolol Succinate XL [Toprol XL] 50 mg PO DAILY 05/01/18 Montelukast [Singulair] 10 mg PO DAILY 05/01/18 Allopurinol [Zyloprim] 100 mg PO DAILY 12/13/18 Alogliptin Benzoate [Alogliptin] 25 mg PO DAILY 12/13/18 Ergocalciferol (Vitamin D2) 50,000 unit PO MOTH 12/13/18 [Vitamin D2] Furosemide [Lasix] 40 mg PO DAILY 12/13/18 Gabapentin [Neurontin] 100 mg PO Q8 12/13/18 Ibuprofen [Ibu] 400 mg PO Q12 PRN 12/13/18 Mometasone Furoate [Asmanex Hfa] 2 puff IH Q12 12/13/18 Omeprazole 20 mg PO DAILY 12/13/18 Potassium Chloride [Klor-Con 10] 10 meq PO DAILY 12/13/18 Simethicone [Gas-X] 125 mg PO Q8 PRN 12/13/18 predniSONE [predniSONE Tab] 5 mg PO DAILY 12/13/18 - Allergies Allergies/Adverse Reactions: Allergies Allergy/AdvReac Type Severity Reaction Status Date / Time No Known Allergies Allergy Verified 12/13/18 15:52 Review of Systems ROS Statement: Except As Marked, All Systems Reviewed And Found Negative Constitutional: Negative for: Fever, Chills Cardiovascular: Negative for: Chest Pain Respiratory: Positive for: Cough, Shortness of Breath Gastrointestinal: Negative for: Nausea, Vomiting Physical Exam - Reviewed Nursing Documentation Reviewed: Yes Vital Signs Reviewed: Yes - Physical Exam Appears: Positive for: Non-toxic Head Exam: Positive for: ATRAUMATIC, NORMAL INSPECTION, NORMOCEPHALIC Skin: Positive for: Normal Color Eye Exam: Positive for: Normal appearance Neck: Positive for: Supple Cardiovascular/Chest: Positive for: Tachycardia (regular rate) Respiratory: Positive for: Crackles (bilaterally) Gastrointestinal/Abdominal: Positive for: Normal Exam Back: Positive for: Normal Inspection Extremity: Positive for: Normal ROM. Negative for: Pedal Edema Neurological/Psych: Positive for: Awake, Alert, Normal Tone - Laboratory Results Result Diagrams: 12/16/18 05:15 12/16/18 05:15 Lab Results: pO2 28 mm/Hg (30-55) L 12/13/18 16:42 VBG pH 7.36 (7.32-7.43) 12/13/18 16:42 VBG pCO2 50 mmHg (40-60) 12/13/18 16:42 VBG HCO3 25.1 mmol/L 12/13/18 16:42 VBG Total CO2 29.7 mmol/L (22-28) H 12/13/18 16:42 VBG O2 Sat (Calc) 55.0 % (40-65) 12/13/18 16:42 VBG Base Excess 1.9 mmol/L (0.0-2.0) 12/13/18 16:42 VBG Potassium 3.9 mmol/L (3.6-5.2) 12/13/18 16:42 Sodium 134.0 mmol/L (132-148) 12/13/18 16:42 Chloride 97.0 mmol/L (98-107) L 12/13/18 16:42 Glucose 89 mg/dL (75-110) 12/13/18 16:42 Lactate 1.5 mmol/L (0.7-2.1) 12/13/18 16:42 FiO2 21.0 % 12/13/18 16:42 PT 12.7 Seconds (9.8-13.1) 12/13/18 16:36 INR 1.1 12/13/18 16:36 APTT 35.8 Seconds (25.6-37.1) 12/13/18 16:36 Troponin I < 0.0120 ng/mL (0.00-0.120) 12/13/18 16:36 NT-Pro-B Natriuret Pep 239 pg/ml (0-900) 12/13/18 16:36 Total Bilirubin 0.8 mg/dl (0.2-1.3) 12/13/18 16:36 AST 33 U/L (17-59) 12/13/18 16:36 ALT 20 U/L (21-72) L 12/13/18 16:36 Alkaline Phosphatase 60 U/L (38-126) 12/13/18 16:36 Total Protein 7.4 G/DL (6.3-8.2) 12/13/18 16:36 Albumin 4.1 g/dL (3.5-5.0) 12/13/18 16:36 Globulin 3.3 gm/dL (2.2-3.9) 12/13/18 16:36 Albumin/Globulin Ratio 1.2 (1.0-2.1) 12/13/18 16:36 - ECG O2 Sat by Pulse Oximetry: 94 (Room Air) Medical Decision Making Medical Decision Making: Workup due to shortness of breath, and crackles on exam CHF vs. PNA -- Labs with culture Lactate Nebulizer treatment x 1; will hold off on 2nd treatment due to tachycardia 1800 Labs unremarkable CXR reviewed with no abnormalities Will give solumedrol IV Patient to be admitted under Dr. Fenton due to COPD exacerbation. No indication of infection or CHF at this time. Plan of care discussed with patient, who is agreeable. Scribe Attestation: Documented by Donna Sheppard acting as a scribe for Sheree Llanes MD. Provider Scribe Attestation: All medical record entries made by the Scribe were at my direction and personally dictated by me. I have reviewed the chart and agree that the record accurately reflects my personal performance of the history, physical exam, medical decision making, and the department course for this patient. I have also personally directed, reviewed, and agree with the discharge instructions and disposition. Disposition - Clinical Impression Clinical Impression: COPD exacerbation - Patient ED Disposition Is Patient to be Admitted: Yes - Disposition Disposition Time: 18:00 Condition: FAIR
[2018-12-13] MEDS ORDERED: Azithromycin 500 MG in Sodium Chloride 0.9% 250 ML IVPB STA (18:01)
[2018-12-13] MEDS ORDERED: Azithromycin 500 MG IV IVPB ONE (18:34)
[2018-12-13] MEDS: Insulin Lispro (humaLOG) 100 Units/ml Inj SC SCH (23:03)
[2018-12-13] MEDS: Albuterol HFA 90 mcg/actuation (8 g) IH PRN (23:20)
[2018-12-14] MEDS ORDERED: methylPREDNISolone 60 MG in Sodium Chloride 0.9% 50 ML IVPB SCH (01:00)
[2018-12-14] MEDS: Albuterol-Ipratrop 3 mg / 0.5 (3 ml) UD INH SCH ×4 (07:22→19:17)
[2018-12-14] MEDS ORDERED: Patient's Own Med (Calcium Carbonate/Vitamin D3 [Calcium 600 + Vit D Tablet] 1 TAB) PO SCH (09:00)
[2018-12-14] MEDS: Insulin Lispro (humaLOG) 100 Units/ml Inj SC SCH ×4 (09:12→22:00)
[2018-12-14] MEDS: Calcium-Vit D 500 mg-200 Units Tab UD PO SCH (09:14)
--- NOTE | 2018-12-14 11:09 | CARD ---
APPROVED REPORT Date of service: 12/14/2018 EKG Measurement Heart [id number] <Conclusion> Normal sinus rhythm Low voltage QRS Inferior infarct, age undetermined Abnormal ECG
--- NOTE | 2018-12-14 11:34 | CARD ---
APPROVED REPORT Date of service: 12/13/2018 EKG Measurement Heart [id number] <Conclusion> Sinus tachycardia with premature supraventricular complexes Otherwise normal ECG
--- NOTE | 2018-12-14 14:22 | RAD ---
Date of service: 12/14/2018 HISTORY: [facility] cop[facility] COMPARISON: December 13, 2018. FINDINGS: LUNGS: No active pulmonary disease. PLEURA: No significant pleural effusion identified, no pneumothorax apparent. CARDIOVASCULAR: Atherosclerotic calcifications identified primarily aortic arch. No radiographic findings to suggest acute or significant cardiovascular disease. OSSEOUS STRUCTURES: No significant abnormalities. VISUALIZED UPPER ABDOMEN: Normal. OTHER FINDINGS: None. IMPRESSION: No active disease. No significant interval change compared to the prior examination(s).
[2018-12-14] MEDS: Promethazine 12.5 mg/10 ml Syrup PO SCH (21:42)
--- NOTE | 2018-12-15 01:53 | CP.PCM.HP ---
History of Present Illness - History of Present Illness History of Present Illness: CC: Dyspnea x 2 days. HPI: 83 y/o Male with a PMH of COPD and lung malignancy presented to the ED for evaluation of shortness of breath x 2 days. CXR was done, which showed no active disease, only COPD. The pt uses Asmanex and Ventolin at home. At present, the pt has an expiratory wheeze, however appears to be in no acute distress. PMH: Asthma, COPD, Diabetes, HTN, Hypercholesterolemia, Malignancy (Lung), Chronic Kidney Disease. PSH: Appendectomy, Hernia Repair (Inguinal x 2). Allergies: NKDA. Review of Systems: Reviewed and no additional remarkable complaints except dyspnea on exertion and cough. Objective Appears: Calm, Non-toxic, No Acute Distress. Head Exam: NORMAL INSPECTION, normocephalic. Eye Exam: Normal eye inspection, EOMI, PERRLA. Respiratory Exam: NORMAL BREATHING PATTERN, expiratory wheeze noted throughout. Cardiovascular Exam: +S1, +S2. RRR. GI & Abdominal Exam: Soft, non-tender, non-distended. Neurological Exam: Alert, Awake, Oriented x3. Psychiatric exam: Normal mood. Calm and cooperative. Skin exam: Normal color, warm and dry. Assessment/Impression/Plan: 1.) COPD exacerbation -CXR negative for active disease. -Started on solumedrol 60 mg Q8h. -Duonebs for shortness of breath. -Procalcitonin to be ordered; r/o bacterial etiology. -Continue current treatment. Present on Admission - Present on Admission Any Indicators Present on Admission: No Past Patient History - Infectious Disease Hx of Infectious Diseases: None - Past Medical History & Family History Past Medical History?: Yes - Past Social History Smoking Status: Never Smoked - CARDIAC Hx Hypercholesterolemia: Yes Hx Hypertension: Yes - PULMONARY Hx Asthma: Yes Hx Chronic Obstructive Pulmonary Disease (COPD): Yes - NEUROLOGICAL Hx Neurological Disorder: Yes Other/Comment: Forgetful - HEENT Hx HEENT Problems: No - RENAL Hx Chronic Kidney Disease: Yes - ENDOCRINE/METABOLIC Hx Endocrine Disorders: Yes Hx Diabetes Mellitus Type 2: Yes - HEMATOLOGICAL/ONCOLOGICAL Hx AIDS: No Hx Human Immunodeficiency Virus (HIV): No - INTEGUMENTARY Hx Dermatological Problems: No - MUSCULOSKELETAL/RHEUMATOLOGICAL Hx Musculoskeletal Disorders: Yes Hx Falls: No Hx Gout: Yes - GASTROINTESTINAL Hx Gastrointestinal Disorders: No - GENITOURINARY/GYNECOLOGICAL Hx Genitourinary Disorders: No - PSYCHIATRIC Hx Psychophysiologic Disorder: No Hx Substance Use: No - SURGICAL HISTORY Hx Appendectomy: Yes - ANESTHESIA Hx Anesthesia: Yes Hx Anesthesia Reactions: No Hx Malignant Hyperthermia: No Meds Allergies/Adverse Reactions: Allergies Allergy/AdvReac Type Severity Reaction Status Date / Time No Known Allergies Allergy Verified 12/13/18 15:52 Results - Vital Signs Recent Vital Signs: Last Vital Signs Temp 97.5 F L 12/14/18 23:49 Pulse 122 H 12/14/18 23:49 Resp 18 12/14/18 23:49 BP 119/80 12/14/18 23:49 Pulse Ox 98 12/14/18 23:49 - Labs Result Diagrams: 12/13/18 16:36 12/13/18 16:36 Labs: Laboratory Results - last 24 hr 12/14/18 12/14/18 12/14/18 07:01 11:08 16:09 POC Glucose (mg/dL) 147 H 261 H 129 H 12/14/18 21:13 POC Glucose (mg/dL) 131 H Assessment & Plan (1) COPD exacerbation Status: Acute Priority: High
[2018-12-15] MEDS: Promethazine 12.5 mg/10 ml Syrup PO SCH ×4 (04:39→21:28)
[2018-12-15 06:01] LABS: BASO % 0.1 % (0.0-2.0); LYMPH # 1.1 K/uL (1.0-4.3); LYMPH % 9.9 % (20.0-40.0); MEAN CELL VOLUME 90.5 fl (80.0-94.0); MEAN CORPUSCULAR HEMOGLOBIN 29.5 pg (27.0-31.0); MEAN CORPUSCULAR HGB CONC 32.6 g/dL (33.0-37.0); MEAN PLATELET VOLUME 9.6 fl (7.2-11.7); MONO # 0.3 K/uL (0.0-0.8); NEUT # 9.3 K/uL (1.8-7.0); PLATELET COUNT 148 K/uL (130-400); RBC 4.06 Mil/uL (4.40-5.90); RED CELL DISTRIBUTION WIDTH 16.3 % (11.5-14.5); WHITE BLOOD COUNT 10.7 K/uL (4.8-10.8)
[2018-12-15 06:14] LABS: ALB/GLOB RATIO 1.3 (1.0-2.1); ALBUMIN 3.9 g/dL (3.5-5.0); CALCIUM 9.2 mg/dL (8.4-10.2)
[2018-12-15] MEDS: Insulin Lispro (humaLOG) 100 Units/ml Inj SC SCH ×4 (06:53→23:00)
[2018-12-15] MEDS: Albuterol-Ipratrop 3 mg / 0.5 (3 ml) UD INH SCH ×4 (08:34→19:11)
[2018-12-15 08:52] LABS: ANISOCYTOSIS SLIGHT; GIANT PLATELETS PRESENT; LYMPHOCYTE 9 % (20-50); MONOCYTE 3 % (0-10); NEUTROPHIL 88 % (42-75); OVALOCYTES SLIGHT; PLATELET ESTIMATE NORMAL (NORMAL); TOTAL CELLS COUNTED 100
[2018-12-15] MEDS: Calcium-Vit D 500 mg-200 Units Tab UD PO SCH (09:24)
[2018-12-15] MEDS: MethylPREDNISolone 40 mg Vial IV SCH (17:45)
[2018-12-15] MEDS ORDERED: Ergocalciferol 50,000 Intl Units Cap PO SCH (22:06)
[2018-12-16] MEDS: MethylPREDNISolone 40 mg Vial IV SCH ×3 (00:09→17:48)
--- NOTE | 2018-12-16 00:44 | PQF ---
PROVIDER RESPONSE TEXT: Chronic kidney disease Stage 3B REVIEWER QUERY TEXT: Kidney Disease, Chronic CKD Stage Chronic Kidney Disease (CKD) is documented in the Medical Record. Please specify the disease stage ( includes probable or suspected) Such as: -- Chronic kidney disease Stage 1 -- Chronic kidney disease Stage 2 -- Chronic kidney disease Stage 3 -- Chronic kidney disease Stage 4 -- Chronic kidney disease Stage 5 -- Chronic kidney disease Stage 5, requiring dialysis -- End Stage Renal Disease -- Other, please specify Stages are defined by the [employer] as follows: CKD Stage I GFR >= 90 ml / min per 1.73 m2 and persistent albuminuria CKD Stage 2 GFR between 60 and 89 with persistent albuminuria CKD Stage 3 GFR between 30 and 59 CKD Stage 4 GFR between 15 and 29 CKD Stage 5 GFR between <15 or End Stage Renal Disease The patient's Clinical Indicators include: Creatinine 1.8, 1.6 GFR Non : 36, 41 Query created by: Licha Raya on 12/15/2018 1:34 PM Electronically signed by: Burak Mayer APN 12/16/2018 12:40 AM
[2018-12-16] MEDS: Promethazine 12.5 mg/10 ml Syrup PO SCH ×4 (04:45→21:27)
[2018-12-16 05:46] LABS: HEMOGLOBIN 11.3 g/dL (12.0-18.0); LYMPH # 0.9 K/uL (1.0-4.3); LYMPH % 8.1 % (20.0-40.0); MEAN CELL VOLUME 89.7 fl (80.0-94.0); MEAN CORPUSCULAR HEMOGLOBIN 29.2 pg (27.0-31.0); MEAN CORPUSCULAR HGB CONC 32.5 g/dL (33.0-37.0); MEAN PLATELET VOLUME 9.7 fl (7.2-11.7); MONO # 0.5 K/uL (0.0-0.8); NEUT # 10.1 K/uL (1.8-7.0); NEUT % 87.9 % (50.0-75.0); NRBC % 0.1 % (0.0-0.0); RBC 3.86 Mil/uL (4.40-5.90); RED CELL DISTRIBUTION WIDTH 16.4 % (11.5-14.5); WHITE BLOOD COUNT 11.5 K/uL (4.8-10.8)
[2018-12-16 06:22] LABS: ALB/GLOB RATIO 1.2 (1.0-2.1); ALBUMIN 3.6 g/dL (3.5-5.0); CALCIUM 9.3 mg/dL (8.4-10.2)
[2018-12-16] MEDS: Insulin Lispro (humaLOG) 100 Units/ml Inj SC SCH ×4 (06:38→22:22)
[2018-12-16] MEDS: Albuterol-Ipratrop 3 mg / 0.5 (3 ml) UD INH SCH ×4 (07:26→19:36)
[2018-12-16] MEDS: Calcium-Vit D 500 mg-200 Units Tab UD PO SCH (09:48)
[2018-12-16 15:10] LABS: URINE BILIRUBIN NEGATIVE (NEGATIVE); URINE BLOOD NEGATIVE (NEGATIVE); URINE CLARITY CLEAR (Clear); URINE COLOR STRAW (YELLOW); URINE GLUCOSE (UA) NEG (NEGATIVE); URINE LEUKOCYTE ESTERASE NEG Leu/uL (Negative); URINE PROTEIN NEGATIVE (NEGATIVE); URINE UROBILINOGEN 0.2-1.0 mg/dL (0.2-1.0)
[2018-12-16] MEDS ORDERED: Sodium Chloride 0.9% 500 ML IV ONE (22:32)
--- NOTE | 2018-12-16 22:34 | CP.PCM.PCO ---
Physician Communication Note - Physician Communication Note Physician Communication Note: Pt tachycardic since 0900;
[2018-12-17] MEDS: Albuterol HFA 90 mcg/actuation (8 g) IH PRN (00:21)
[2018-12-17] MEDS: MethylPREDNISolone 40 mg Vial IV SCH ×3 (00:22→17:08)
[2018-12-17] MEDS ORDERED: Sodium Chloride 0.9% 500 ML IV ONE (01:24)
[2018-12-17] MEDS: Promethazine 12.5 mg/10 ml Syrup PO SCH ×4 (04:35→21:14)
[2018-12-17 06:31] LABS: HEMOGLOBIN 10.9 g/dL (12.0-18.0); MEAN CELL VOLUME 90.8 fl (80.0-94.0); MEAN CORPUSCULAR HEMOGLOBIN 29.3 pg (27.0-31.0); MEAN CORPUSCULAR HGB CONC 32.3 g/dL (33.0-37.0); RBC 3.72 Mil/uL (4.40-5.90); RED CELL DISTRIBUTION WIDTH 16.4 % (11.5-14.5); WHITE BLOOD COUNT 12.3 K/uL (4.8-10.8)
[2018-12-17 06:35] LABS: ALB/GLOB RATIO 1.2 (1.0-2.1); ALBUMIN 3.4 g/dL (3.5-5.0); CALCIUM 8.8 mg/dL (8.4-10.2)
[2018-12-17] MEDS: Insulin Lispro (humaLOG) 100 Units/ml Inj SC SCH ×4 (06:43→23:00)
[2018-12-17] MEDS: Albuterol-Ipratrop 3 mg / 0.5 (3 ml) UD INH SCH ×3 (07:47→15:11)
[2018-12-17] MEDS: Calcium-Vit D 500 mg-200 Units Tab UD PO SCH (08:46)
[2018-12-17] MEDS ORDERED: Levalbuterol 0.63 MG/3 ML Inhal Soln UD INH PRN (15:33)
[2018-12-17] MEDS ORDERED: Ipratropium 0.02% Inhal Soln (0.5 mg/2.5 ml) UD IH SCH (17:00)
[2018-12-17] MEDS: Ipratropium 0.02% Inhal Soln (0.5 mg/2.5 ml) UD IH SCH (23:56)
[2018-12-18] MEDS: MethylPREDNISolone 40 mg Vial IV SCH ×2 (01:43→09:19)
[2018-12-18] MEDS: Promethazine 12.5 mg/10 ml Syrup PO SCH ×2 (04:28→09:18)
[2018-12-18] MEDS: Insulin Lispro (humaLOG) 100 Units/ml Inj SC SCH ×2 (06:47→13:06)
[2018-12-18] MEDS: Ipratropium 0.02% Inhal Soln (0.5 mg/2.5 ml) UD IH SCH (07:47)
[2018-12-18 08:42] VITALS: BP 105/70; RESP 20; TEMP 97.9; O2SAT 94
[2018-12-18] MEDS: Calcium-Vit D 500 mg-200 Units Tab UD PO SCH (09:18)
[2018-12-18 11:16] VITALS: PULSE 89
--- NOTE | 2018-12-18 23:01 | CARD ---
APPROVED REPORT Date of service: 12/16/2018 EKG Measurement Heart [id number] <Conclusion> Sinus tachycardia with frequent premature ventricular complexes and premature atrial complexes Cannot rule out Anterior infarct, age undetermined Abnormal ECG
--- NOTE | 2018-12-20 01:53 | PQF ---
PROVIDER RESPONSE TEXT: Moderate Persistent asthma REVIEWER QUERY TEXT: Asthma Specificity and Type History of Asthma is documented in the Medical Record. Please specify the type With or Without Exace rbation. Such as: -- Mild intermittent -- Mild persistent -- Moderate persistent -- Severe persistent -- Exercise induced bronchospasm -- Cough variant asthma -- Other, please specify Rx: Solumedrol, Duonebs, Ventolin HFA The patient's Clinical Indicators include: Admitted for COPD exacerbation. + wheezing, cough and SOB. CXR: No active disease. COPD. Rx: Solumedrol, Duonebs, Ventolin HFA Query created by: Licha Raya on 12/16/2018 9:52 AM Electronically signed by: Burka Mayer APN 12/20/2018 1:50 AM
--- NOTE | 2018-12-22 00:42 | CP.PCM.PN ---
Subjective - Date & Time of Evaluation Date of Evaluation: 12/15/18 Time of Evaluation: 10:00 - Subjective Subjective: Pt seen and assessed at bedside. Reports an improvement in breathing; dyspnea on exertion has decreased. Review of Systems: Reviewed and no additional remarkable complaints except improving dyspnea on exertion and cough. Objective Appears: Calm, Non-toxic, No Acute Distress. Head Exam: NORMAL INSPECTION, normocephalic. Eye Exam: Normal eye inspection, EOMI, PERRLA. Respiratory Exam: NORMAL BREATHING PATTERN, improving wheeze noted. Cardiovascular Exam: +S1, +S2. RRR. GI & Abdominal Exam: Soft, non-tender, non-distended. Neurological Exam: Alert, Awake, Oriented x3. Psychiatric exam: Normal mood. Calm and cooperative. Skin exam: Normal color, warm and dry. Assessment/Impression/Plan: 1.) COPD exacerbation -Continue IV steroids. -Duonebs for shortness of breath. -PT/OT as tolerated. -Continue current treatment. Objective - Vital Signs/Intake and Output Vital Signs (last 24 hours): Temp Pulse Resp BP Pulse Ox 97.9 F 89 20 105/70 94 L 12/18/18 08:41 12/18/18 09:00 12/18/18 08:41 12/18/18 09:18 12/18/18 08:41 - Labs Labs: 12/17/18 04:52 12/17/18 04:52 PT 12.7 Seconds (9.8-13.1) 12/13/18 16:36 INR 1.1 12/13/18 16:36 APTT 35.8 Seconds (25.6-37.1) 12/13/18 16:36 Assessment and Plan (1) COPD exacerbation Status: Acute
== END 2018-12-18 13:40 | disposition home or self-care (01) | DRG 88 ==
LOC: H.ER 15:45 → H.ERHOLD 18:02 → H.TEL 21:35
PROVIDERS: ADMIT Family Medicine; ATTEND Family Medicine
PROC: 3E0F73Z Introduction of Anti-inflammatory into Respiratory Tract, Via Natural or Artificial Opening (ICD-10-PCS; principal; 2018-12-13)
DX: J44.1 Chronic obstructive pulmonary disease with (acute) exacerbation (principal); E11.22 Type 2 diabetes mellitus with diabetic chronic kidney disease; N18.3 Chronic kidney disease, stage 3 (moderate); I12.9 Hypertensive chronic kidney disease with stage 1 through stage 4 chronic kidney disease, or unspecified chronic kidney disease; J45.40 Moderate persistent asthma, uncomplicated; E78.00 Pure hypercholesterolemia, unspecified; Z85.118 Personal history of other malignant neoplasm of bronchus and lung; Z79.84 Long term (current) use of oral hypoglycemic drugs